=== PATIENT | female | born 1990 | race African-American/Black ===

== ENCOUNTER → 2016-05-02 | Outpatient (CLI) | payer OTHER ==
[~2016-05-02] MED LIST: MACR100C PO; ONDA1TAB16 PO
== END ==
LOC: HPND 09:22
PROVIDERS: ATTEND Obstetrics & Gynecology
DX: O35.8XX0 Maternal care for other (suspected) fetal abnormality and damage, not applicable or unspecified (principal); Q66.0 Congenital talipes equinovarus; O99.322 Drug use complicating pregnancy, second trimester; Z3A.25 25 weeks gestation of pregnancy
CPT/HCPCS: 76811